=== PATIENT | female | born 1970 | race African-American/Black ===

== ENCOUNTER 2018-07-03 22:37 | Inpatient (IN) | payer OTHER ==
[~2018-07-03] VITALS: Ht 167.6 cm; Wt 121.8 kg
[~2018-07-03 22:37] MED LIST: ETOMIDATE 2MG/ML 10ML VIAL IV ONE; VECURONIUM BROMIDE 10 MG/VIAL IV ONE
[2018-07-03] MEDS ORDERED: LORAZEPAM 2MG/ML CPJ ONE (22:40)
[2018-07-03] MEDS ORDERED: LEVETIRACETAM 500MG PREMIX 100 ML IV ONE (23:00)
[2018-07-03] MEDS ORDERED: HYDRALAZINE 20MG/ML VIAL IV ONE (23:00)
[2018-07-03 23:22] LABS: BG BASE EXCESS -13.1 mmol/L (-2.0-2.0); BG CARBOXYHEMOGLOBIN 0.6 % (0.5-1.5); BG DEOXYHEMOGLOBIN 2.1 % (0.0-5.0); BG FRACTION INSPIRED OXYGEN 100; BG HCO3 ACT 18.7 mmol/L (22.0-26.0); BG METHEMOGLOBIN 0.4 % (0.0-1.5); BG OXYGEN SATURATION 97.9 % (92.0-98.5); BG OXYHEMOGLOBIN 96.9 % (94.0-97.0); BG PH 7.027 (7.350-7.450); BG PO2 154.5 mmHg (75.0-100.0); BG SAMPLE SITE RIGHT RADIAL; BG TOTAL HEMOGLOBIN 13.4 g/dL (12.0-18.0); BG VENT MODE MASK - NRB
[2018-07-03] MEDS ORDERED: LORAZEPAM 2MG/ML CPJ IV ONE (23:45)
[2018-07-04] VITALS (54 sets, daily range): BP systolic 126–193; BP diastolic 50–144
[2018-07-04] LABS: BASOPHILS % 0.5 % (0.0-2.0); EOSINOPHILS % 0.6 % (0.0-5.0); HEMATOCRIT. 40.1 % (36.0-48.0); HEMOGLOBIN. 12.8 g/dL (12.0-16.0); LYMPHOCYTES % 21.7 % (20.0-50.0); MEAN CORPUSCULAR HEMOGLOBIN 27.3 pg (28.0-32.0); MEAN CORPUSCULAR VOLUME 85.5 fL (81.0-99.0); MEAN PLATELET VOLUME 7.8 fl (7.4-10.4); NEUTROPHILS % 72.2 % (40.0-76.0); PLATELET 410 x1000/uL (130-400); RED BLOOD CELL COUNT 4.69 mill/uL (4.2-5.4); RED CELL DISTRIBUTION WIDTH 16.4 % (11.6-14.6)
[2018-07-04] MEDS ORDERED: ETOMIDATE 2MG/ML 10ML VIAL IV ONE
[2018-07-04] MEDS ORDERED: PROPOFOL 10MG/ML 100ML 100 ML IV ONE
[2018-07-04] MEDS ORDERED: VECURONIUM BROMIDE 10 MG/VIAL IV ONE
[2018-07-04 00:04] LABS: CHLORIDE 113 mEq/L (98-107)
[2018-07-04 00:07] LABS: D-DIMER 0.63 mg/L FEU (<0.50); HCG SCREEN NEGATIVE; INR 1.1; PROTHROMBIN TIME 11.3 sec (9.6-11.0)
[2018-07-04 00:09] LABS: ETHANOL BLOOD < 10 mg/dL
[2018-07-04 00:12] LABS: CARBAMAZEPINE < 0.5 ug/mL (4-12); LDL CHOLESTEROL 82 mg/dL (5-100)
[2018-07-04 00:13] LABS: CREATINE KINASE 112 IU/L (26-192)
[2018-07-04 00:14] LABS: PHENOBARBITAL < 2.1 ug/mL (15.0-40.0)
[2018-07-04 00:44] LABS: BG BASE EXCESS -10.9 mmol/L (-2.0-2.0); BG CARBOXYHEMOGLOBIN 0.6 % (0.5-1.5); BG DEOXYHEMOGLOBIN 1.4 % (0.0-5.0); BG FRACTION INSPIRED OXYGEN 50; BG HCO3 ACT 16.4 mmol/L (22.0-26.0); BG METHEMOGLOBIN 0.4 % (0.0-1.5); BG OXYGEN SATURATION 98.6 % (92.0-98.5); BG OXYHEMOGLOBIN 97.6 % (94.0-97.0); BG PCO2 41.6 mmHg (35.0-45.0); BG PH 7.214 (7.350-7.450); BG PO2 152.4 mmHg (75.0-100.0); BG SAMPLE SITE RIGHT RADIAL; BG TIDAL VOLUME(mL) 600 mL; BG TOTAL HEMOGLOBIN 13.1 g/dL (12.0-18.0); BG VENT MODE VENT - A/C; BG VENT RATE 16 set
[2018-07-04] MEDS ORDERED: VANCOMYCIN 1 G PREMIX 200 ML IV ONE (01:00)
[2018-07-04] MEDS ORDERED: PIPERACILLIN/TAZ 3.375G PREMIX 50 ML IV ONE (01:00)
[2018-07-04] MEDS: DEXT 5%/0.45% NACL KCL 20MEQ/L 1,000 ML IV SCH ×2 (03:13→15:21)
[2018-07-04] MEDS: PROPOFOL 10MG/ML 100ML 100 ML IV PRN ×7 (03:14→21:19)
[2018-07-04] MEDS: IPRATROPIUM/ALBUTEROL 0.5-3(2.5)MG/3ML NEB HHN SCH ×5 (04:44→20:32)
[2018-07-04] MEDS: PIPERACILLIN/TAZ 3.375G PREMIX 50 ML IV SCH ×3 (05:27→18:15)
[2018-07-04 05:37] LABS: BASOPHILS % 0.1 % (0.0-2.0); HEMATOCRIT. 37.1 % (36.0-48.0); HEMOGLOBIN. 11.5 g/dL (12.0-16.0); LYMPHOCYTES % 10.3 % (20.0-50.0); MEAN CORPUSCULAR HEMOGLOBIN 26.9 pg (28.0-32.0); MEAN CORPUSCULAR VOLUME 86.6 fL (81.0-99.0); MEAN PLATELET VOLUME 7.9 fl (7.4-10.4); MONOCYTES % 7.2 % (2.0-8.0); NEUTROPHILS % 82.4 % (40.0-76.0); PLATELET 345 x1000/uL (130-400); RED BLOOD CELL COUNT 4.29 mill/uL (4.2-5.4); RED CELL DISTRIBUTION WIDTH 16.1 % (11.6-14.6)
[2018-07-04 05:43] LABS: CLARITY URINE CLEAR (CLEAR); COLOR URINE YELLOW (YELLOW); KETONES URINE NEGATIVE (NEGATIVE); LEUKOCYTE ESTERASE URINE NEGATIVE (NEGATIVE); NITRITE URINE NEGATIVE (NEGATIVE); OCCULT BLOOD URINE NEGATIVE (NEGATIVE); PROTEIN URINE NEGATIVE (NEGATIVE); SPECIFIC GRAVITY URINE 1.023 (1.005-1.030); UROBILINOGEN URINE 0.2 E.U./dL (0.2-1.0)
[2018-07-04] MEDS ORDERED: PIPERACILLIN/TAZ 3.375G PREMIX 50 ML IV SCH (06:00)
[2018-07-04 06:12] LABS: CHLORIDE 111 mEq/L (98-107)
[2018-07-04 06:24] LABS: T4 FREE 0.96 ng/dL (0.76-1.46)
[2018-07-04 06:58] LABS: *AMPHETAMINES SCREEN URINE NEGATIVE (NEGATIVE); *BARBITURATES SCREEN URINE NEGATIVE (NEGATIVE); *BENZODIAZEPINES SCREEN URINE NEGATIVE (NEGATIVE); METHADONE URINE SCREEN NEGATIVE (NEGATIVE)
[2018-07-04 06:59] LABS: *COCAINE SCREEN URINE NEGATIVE (NEGATIVE); OPIATES URINE SCREEN NEGATIVE (NEGATIVE)
[2018-07-04 07:00] LABS: CANNABINOID URINE SCREEN NEGATIVE (NEGATIVE); PHENCYCLIDINE URINE SCREEN NEGATIVE (NEGATIVE)
[2018-07-04 07:58] LABS: BG BASE EXCESS -6.4 mmol/L (-2.0-2.0); BG CARBOXYHEMOGLOBIN 0.2 % (0.5-1.5); BG DEOXYHEMOGLOBIN 1.3 % (0.0-5.0); BG FRACTION INSPIRED OXYGEN 40; BG HCO3 ACT 17.6 mmol/L (22.0-26.0); BG METHEMOGLOBIN 0.4 % (0.0-1.5); BG OXYGEN SATURATION 98.7 % (92.0-98.5); BG OXYHEMOGLOBIN 98.1 % (94.0-97.0); BG PCO2 30.3 mmHg (35.0-45.0); BG PH 7.382 (7.350-7.450); BG PO2 146.8 mmHg (75.0-100.0); BG SAMPLE SITE RIGHT RADIAL; BG TIDAL VOLUME(mL) 600 mL; BG VENT MODE VENT - A/C; BG VENT RATE 16 set
[2018-07-04] MEDS: FAMOTIDINE 20MG/2ML VIAL IV SCH (08:36)
[2018-07-04] MEDS ORDERED: LEVETIRACETAM 500MG/5ML CUP PO SCH (09:00)
[2018-07-04] MEDS: VANCOMYCIN 1500MG in DEXTROSE 5% WATER 250ML IV SCH ×2 (09:23→22:54)
[2018-07-04] MEDS ORDERED: LOPE-159 PO (10:13)
[2018-07-04] MEDS ORDERED: TOPA200 MT (10:14)
[2018-07-04] MEDS ORDERED: LISI2.5T47 MT (10:15)
[2018-07-04] MEDS ORDERED: LEVE1000 MT (10:16)
[2018-07-04] MEDS: TOPIRAMATE 25MG TABLET PO SCH ×2 (14:17→21:00)
[2018-07-04] MEDS: LEVETIRACETAM 500MG/5ML CUP PO SCH (20:59)
[2018-07-04] MEDS ORDERED: CLONIDINE 0.1MG TABLET PO PRN (21:15)
[2018-07-04] MEDS: AMLODIPINE 5MG TABLET PO SCH (21:20)
[2018-07-04] MEDS: ENOXAPARIN 30MG/0.3ML SYR SUBCUT SCH (22:24)
[2018-07-04] MEDS: LABETALOL 5MG/ML SYR 20 MG/4 ML SYRINGE IV PRN (22:55)
[2018-07-04] MEDS ORDERED: PROPOFOL 10MG/ML 100ML 100 ML IV PRN (22:56)
[2018-07-05] VITALS (81 sets, daily range): BP systolic 110–190; BP diastolic 26–130
[2018-07-05] MEDS: PROPOFOL 10MG/ML 100ML 100 ML IV PRN ×5 (00:11→12:25)
[2018-07-05] MEDS: PIPERACILLIN/TAZ 3.375G PREMIX 50 ML IV SCH ×5 (00:11→23:35)
[2018-07-05] MEDS: IPRATROPIUM/ALBUTEROL 0.5-3(2.5)MG/3ML NEB HHN SCH ×6 (00:15→21:05)
[2018-07-05] MEDS: ACETAMINOPHEN 650MG/20.3ML UDC PO PRN ×2 (00:19→18:54)
[2018-07-05] MEDS: DEXT 5%/0.45% NACL KCL 20MEQ/L 1,000 ML IV SCH ×3 (03:38→20:31)
[2018-07-05 04:49] LABS: BASOPHILS % 0.4 % (0.0-2.0); EOSINOPHILS % 0.2 % (0.0-5.0); HEMATOCRIT. 36.8 % (36.0-48.0); HEMOGLOBIN. 11.8 g/dL (12.0-16.0); LYMPHOCYTES % 25.5 % (20.0-50.0); MEAN CORPUSCULAR HEMOGLOBIN 27.5 pg (28.0-32.0); MEAN CORPUSCULAR VOLUME 85.4 fL (81.0-99.0); MEAN PLATELET VOLUME 7.7 fl (7.4-10.4); NEUTROPHILS % 59.9 % (40.0-76.0); PLATELET 319 x1000/uL (130-400); RED BLOOD CELL COUNT 4.31 mill/uL (4.2-5.4); RED CELL DISTRIBUTION WIDTH 16.4 % (11.6-14.6)
[2018-07-05 05:08] LABS: CHLORIDE 116 mEq/L (98-107)
[2018-07-05] MEDS: LABETALOL 5MG/ML SYR 20 MG/4 ML SYRINGE IV PRN (05:58)
[2018-07-05] MEDS: VANCOMYCIN 1500MG in DEXTROSE 5% WATER 250ML IV SCH (08:19)
[2018-07-05] MEDS: LEVETIRACETAM 500MG/5ML CUP PO SCH ×2 (08:19→20:31)
[2018-07-05] MEDS: ENOXAPARIN 30MG/0.3ML SYR SUBCUT SCH ×2 (08:20→20:32)
[2018-07-05] MEDS: TOPIRAMATE 25MG TABLET PO SCH ×2 (08:20→20:32)
[2018-07-05] MEDS: AMLODIPINE 5MG TABLET PO SCH ×2 (08:20→20:33)
[2018-07-05] MEDS: FAMOTIDINE 20MG/2ML VIAL IV SCH (08:21)
[2018-07-05 08:48] LABS: BG BASE EXCESS -3.1 mmol/L (-2.0-2.0); BG CARBOXYHEMOGLOBIN 0.3 % (0.5-1.5); BG DEOXYHEMOGLOBIN 1.1 % (0.0-5.0); BG FRACTION INSPIRED OXYGEN 40; BG HCO3 ACT 19.8 mmol/L (22.0-26.0); BG METHEMOGLOBIN 0.3 % (0.0-1.5); BG OXYGEN SATURATION 98.9 % (92.0-98.5); BG OXYHEMOGLOBIN 98.3 % (94.0-97.0); BG PCO2 29.1 mmHg (35.0-45.0); BG PH 7.451 (7.350-7.450); BG PO2 164.3 mmHg (75.0-100.0); BG SAMPLE SITE RIGHT RADIAL; BG TIDAL VOLUME(mL) 600 mL; BG VENT MODE VENT - A/C; BG VENT RATE 16 set
[2018-07-05] MEDS ORDERED: POTASSIUM CHLORIDE 20MEQ/PACKET NG NR (09:52)
[2018-07-05 11:24] LABS: BG BASE EXCESS -4.6 mmol/L (-2.0-2.0); BG CARBOXYHEMOGLOBIN 0.3 % (0.5-1.5); BG DEOXYHEMOGLOBIN 1.3 % (0.0-5.0); BG FRACTION INSPIRED OXYGEN 40; BG HCO3 ACT 20.3 mmol/L (22.0-26.0); BG METHEMOGLOBIN 0.2 % (0.0-1.5); BG OXYGEN SATURATION 98.7 % (92.0-98.5); BG OXYHEMOGLOBIN 98.2 % (94.0-97.0); BG PH 7.357 (7.350-7.450); BG PRESSURE SUPPORT 15; BG SAMPLE SITE RIGHT RADIAL; BG TIDAL VOLUME(mL) 600 mL; BG TOTAL HEMOGLOBIN 12.3 g/dL (12.0-18.0); BG VENT MODE VENT - SIMV; BG VENT RATE 10 set
[2018-07-05] MEDS ORDERED: HYDROMORPHONE HCL/PF 2MG/ML CPJ IV NR (13:00)
[2018-07-05] MEDS: METOPROLOL TARTRATE 25MG TABLET PO SCH ×2 (13:06→20:33)
[2018-07-05 14:36] LABS: BG BASE EXCESS -4.3 mmol/L (-2.0-2.0); BG CARBOXYHEMOGLOBIN 0.5 % (0.5-1.5); BG FRACTION INSPIRED OXYGEN 40; BG HCO3 ACT 21.1 mmol/L (22.0-26.0); BG METHEMOGLOBIN 0.2 % (0.0-1.5); BG OXYHEMOGLOBIN 97.3 % (94.0-97.0); BG PCO2 39.6 mmHg (35.0-45.0); BG PH 7.344 (7.350-7.450); BG PO2 113.4 mmHg (75.0-100.0); BG PRESSURE SUPPORT 14; BG SAMPLE SITE RIGHT RADIAL; BG TOTAL HEMOGLOBIN 12.5 g/dL (12.0-18.0); BG VENT MODE VENT - CPAP
[2018-07-05] MEDS: VANCOMYCIN 1250MG in DEXTROSE 5% WATER 250ML IV SCH (17:36)
[2018-07-05] MEDS ORDERED: ONDANSETRON HCL 4MG/2ML INJ IV PRN (20:15)
[2018-07-05] MEDS: HYDROCODONE/ACETAMINOPHEN 5/325MG TABLET PO PRN (20:32)
[2018-07-05] MEDS ORDERED: ACETAMINOPHEN 325MG TABLET PO PRN (21:45)
[2018-07-06] VITALS (13 sets, daily range): BP systolic 110–149; BP diastolic 65–91
[2018-07-06] MEDS: IPRATROPIUM/ALBUTEROL 0.5-3(2.5)MG/3ML NEB HHN SCH ×3 (00:45→12:17)
[2018-07-06] MEDS: VANCOMYCIN 1250MG in DEXTROSE 5% WATER 250ML IV SCH ×3 (01:01→10:41)
[2018-07-06] MEDS ORDERED: LIDOCAINE HCL/PF 1% 2ML VIAL ONE (05:00)
[2018-07-06] MEDS: HYDROCODONE/ACETAMINOPHEN 5/325MG TABLET PO PRN (05:16)
[2018-07-06] MEDS: PIPERACILLIN/TAZ 3.375G PREMIX 50 ML IV SCH ×2 (06:27→12:00)
[2018-07-06] MEDS: DEXT 5%/0.45% NACL KCL 20MEQ/L 1,000 ML IV SCH (06:27)
[2018-07-06 06:51] LABS: BASOPHILS % 0.5 % (0.0-2.0); EOSINOPHILS % 1.2 % (0.0-5.0); HEMATOCRIT. 32.4 % (36.0-48.0); HEMOGLOBIN. 10.6 g/dL (12.0-16.0); LYMPHOCYTES % 29.9 % (20.0-50.0); MEAN CORPUSCULAR HEMOGLOBIN 27.3 pg (28.0-32.0); MEAN CORPUSCULAR VOLUME 83.8 fL (81.0-99.0); MEAN PLATELET VOLUME 7.7 fl (7.4-10.4); NEUTROPHILS % 59.4 % (40.0-76.0); PLATELET 296 x1000/uL (130-400); RED BLOOD CELL COUNT 3.87 mill/uL (4.2-5.4)
[2018-07-06 07:47] LABS: CHLORIDE 112 mEq/L (98-107)
[2018-07-06 08:02] LABS: PHOSPHORUS 1.3 mg/dL (2.5-4.9)
[2018-07-06] MEDS ORDERED: POTASSIUM CHLORIDE 20MEQ TABLET SR PO NR (08:15)
[2018-07-06] MEDS: LEVETIRACETAM 500MG/5ML CUP PO SCH (08:42)
[2018-07-06] MEDS: TOPIRAMATE 25MG TABLET PO SCH (08:42)
[2018-07-06] MEDS: FAMOTIDINE 20MG/2ML VIAL IV SCH (08:43)
[2018-07-06] MEDS ORDERED: POTASSIUM CHLORIDE 20MEQ/PACKET GT SCH (09:00)
[2018-07-06] MEDS ORDERED: POTASSIUM PHOS,M-BASIC-D-BASIC 30 MMOL in DEXT 5% WATER 500 ML IV NR (09:30)
[2018-07-06 10:03] LABS: BG BASE EXCESS -2.6 mmol/L (-2.0-2.0); BG CARBOXYHEMOGLOBIN 0.3 % (0.5-1.5); BG DEOXYHEMOGLOBIN 2.2 % (0.0-5.0); BG FRACTION INSPIRED OXYGEN 21; BG HCO3 ACT 21.2 mmol/L (22.0-26.0); BG METHEMOGLOBIN 0.2 % (0.0-1.5); BG OXYGEN SATURATION 97.8 % (92.0-98.5); BG OXYHEMOGLOBIN 97.3 % (94.0-97.0); BG PCO2 33.8 mmHg (35.0-45.0); BG PH 7.416 (7.350-7.450); BG PO2 101.8 mmHg (75.0-100.0); BG SAMPLE SITE RIGHT RADIAL; BG TOTAL HEMOGLOBIN 12.3 g/dL (12.0-18.0); BG VENT MODE ROOM AIR
[2018-07-06] MEDS: AMLODIPINE 5MG TABLET PO SCH (10:56)
[2018-07-06] MEDS: METOPROLOL TARTRATE 25MG TABLET PO SCH (10:56)
[2018-07-06] MEDS: ENOXAPARIN 30MG/0.3ML SYR SUBCUT SCH (10:56)
== END 2018-07-06 13:55 | disposition home or self-care (01) | DRG 720 ==
LOC: ER 22:37 → EDBD 07-04 00:03 → MICUSO 07-04 00:03 → EDBEDREQTM 07-04 00:09 → EDBEDREQ 07-04 00:09 → EDBEDREQDT 07-04 00:09 → EDBEDREQSVC 07-04 00:09 → ENRESERV 07-04 00:23 → 5EST 07-06 02:45
PROVIDERS: ADMIT Internal Medicine Geriatric Medicine; ATTEND Internal Medicine Geriatric Medicine
PROC: 5A1945Z Respiratory Ventilation, 24-96 Consecutive Hours (ICD-10-PCS; principal; 2018-07-04)
PROC: 0BH17EZ Insertion of Endotracheal Airway into Trachea, Via Natural or Artificial Opening (ICD-10-PCS; 2018-07-04)
DX: A41.9 Sepsis, unspecified organism (principal); J96.00 Acute respiratory failure, unspecified whether with hypoxia or hypercapnia; J69.0 Pneumonitis due to inhalation of food and vomit; G92 Toxic encephalopathy; G40.901 Epilepsy, unspecified, not intractable, with status epilepticus; G43.909 Migraine, unspecified, not intractable, without status migrainosus; E66.01 Morbid (severe) obesity due to excess calories; E83.39 Other disorders of phosphorus metabolism; E87.6 Hypokalemia; I10 Essential (primary) hypertension; Z68.41 Body mass index [BMI] 40.0-44.9, adult; J98.11 Atelectasis; Z79.899 Other long term (current) drug therapy; Z98.891 History of uterine scar from previous surgery; E11.9 Type 2 diabetes mellitus without complications
CPT/HCPCS: 31500; 36415; 36600; 71045; 80048; 80156; 80165; 80184; 80185; 80202; 80305; 80320; 82140; 82375; 82550; 82805; 83605; 83721; 83735; 83880; 84100; 84145; 84439; 84443; 84478; 84484; 84703; 85379; 87070; 93005; 93970; 96365; 96375; 97162; 99291; J0360; J1170; J1650; J1953; J2060; J2405; J2543; J2704; J3370; J3490; J7050; J7060; J7620; A4315; G0480